=== PATIENT | male | born 1995 | race Two or more races ===

== ENCOUNTER 2024-05-01 21:14 | Emergency (ER) | payer OTHER ==
[~2024-05-01] VITALS: Ht 180.3 cm; Wt 69.9 kg
[2024-05-01] MEDS ORDERED: DOVATO 50-3001 EACH (21:24)
[2024-05-02 00:23] LABS: PH,URINE 6.5 (5.0-8.0); URINE APPEARANCE Cloudy; URINE BILIRRUBIN Negative (NEGATIVE); URINE BLOOD Large; URINE COLOR Yellow; URINE GLUCOSE Negative (NEGATIVE); URINE LEUKOCYTE Trace; URINE NITRATE Negative; URINE PROTEIN 30 (NEGATIVE); URINE UROBILINOGEN 0.2 E.U./dl
[2024-05-02 00:26] LABS: URINE BACTERIA 60.4 uL (0.0-1933); URINE EPITHELIAL CELLS 1.5 uL (0.0-38.8); URINE RBC 3988.3 uL (0.0-20.8); URINE WBC 29.8 uL (0.0-23.2)
[2024-05-02 00:35] LABS: HEMATOCRIT 44.7 % (39.0-48.0); HEMOGLOBIN 15.7 g/dL (13-16.00); MEAN CELL VOLUME 88.6 fL (80.0-100.00); PLATELET COUNT 146 K/uL (150-450); RED BLOOD COUNT 5.04 M/uL (4.00-6.00); RED CELL DISTRIBUTION WIDTH 13.8 % (11.5-14.5)
[2024-05-02 00:44] LABS: INR 1.11; PROTHROMBIN TIME 11.6 SECONDS (9.0-11.5)
[2024-05-02 00:50] LABS: ALBUMIN 3.9 gm/dL (3.4-5.0); BILIRUBIN TOTAL 1.94 mg/dL (0.3-1.2); CALCIUM 8.9 mg/dL (8.5-10.1); CREATININE SERUM 1.27 mg/dL (0.70-1.30); POTASSIUM 3.98 mEq/L (3.5-5.1); TOTAL PROTEIN 7.9 gm/dL (6.4-8.2)
[2024-05-02 00:51] LABS: GFR 67.53
[2024-05-02] MEDS ORDERED: CIPRO500 MG PO (01:34)
== END 2024-05-02 01:43 | disposition home or self-care (01) ==
LOC: ER 21:15
PROVIDERS: General Practice
DX: R31.9 Hematuria, unspecified (principal)

== ENCOUNTER 2024-07-21 11:38 | Emergency (ER) | payer OTHER ==
[~2024-07-21] VITALS: Ht 157.5 cm; Wt 70.3 kg
[~2024-07-21 11:38] MED LIST: CIPRO500 MG PO; DOVATO 50-3001 EACH
[2024-07-21 12:36] VITALS: BP 127/91; O2SAT 99
[2024-07-21] MEDS ORDERED: TRAMADOL HCL 50 MG TABLET PO STA (12:47)
== END 2024-07-21 16:19 | disposition home or self-care (01) ==
LOC: ER 11:40
DX: S52.121A Displaced fracture of head of right radius, initial encounter for closed fracture (principal); S60.212A Contusion of left wrist, initial encounter; S40.021A Contusion of right upper arm, initial encounter; V19.9XXA Pedal cyclist (driver) (passenger) injured in unspecified traffic accident, initial encounter; Y93.89 Activity, other specified; Y92.89 Other specified places as the place of occurrence of the external cause; Y99.9 Unspecified external cause status; R31.9 Hematuria, unspecified

== ENCOUNTER 2024-07-29 12:28 | Outpatient (CLI) | payer OTHER | END 2024-07-29 12:35 | disposition home or self-care (01) | LOC: RAD 12:28 | PROVIDERS: ATTEND Orthopaedic Surgery | DX: S40.011A Contusion of right shoulder, initial encounter (principal); S52.125A Nondisplaced fracture of head of left radius, initial encounter for closed fracture ==

== ENCOUNTER 2024-09-09 13:55 | Outpatient (CLI) | payer OTHER | END 2024-09-09 14:02 | disposition home or self-care (01) | LOC: RAD 13:55 | PROVIDERS: ATTEND Orthopaedic Surgery | DX: S52.124D Nondisplaced fracture of head of right radius, subsequent encounter for closed fracture with routine healing (principal) ==

== ENCOUNTER → 2025-10-21 | Emergency (ER) | payer OTHER ==
[~2025-10-21] VITALS: Ht 154.9 cm; Wt 70.3 kg
[~2025-10-21] MED LIST changes: +AZITHROMYCIN250 MG PO; +CEFTRIAXONE SODIUM 2,000 MG VIAL IV STA; +GUAIFENESIN 200 MG/10 ML BLIST.PACK PO STA; +METHYLPREDNISOLONE SOD SUCC 125 MG VIAL IV STA
[2025-10-22 01:09] LABS: COVID-19 AG NEGATIVE (NEGATIVE)
[2025-10-22 01:10] LABS: BASO % 0.3 % (0.1-1.2); EOS # 0.05 (0.04-0.54); EOS % 0.5 % (0.7-7.0); LYMPH # 2.36 (1.18-3.74); LYMPH % 24.6 % (19.3-53.1); MEAN PLATELET VOLUME 9.50 fl (9.4-12.4); MONO # 0.61 (0.24-0.82); MONO % 6.4 % (4.7-12.5); NEUT # 6.52 (1.56-6.13); NEUT % 67.9 % (34.0-71.1); RED CELL DISTRIBUTION WIDTH 12.8 % (11.6-14.4)
[2025-10-22 01:35] LABS: ALT/SGPT 29.0 U/L (12-78); AST/SGOT 19.0 U/L (15-37); BILIRUBIN TOTAL 1.09 mg/dL (0.3-1.2); BUN CREA RATIO 11.0 (7.0-25.0); CREATININE SERUM 0.99 mg/dL (0.70-1.30); GFR 89.37; GLOBULINA 4.2 G/DL (2.4-3.5); GLUCOSE FASTING 91.0 mg/dL (65-100); OSMOLALITY SERUM 277.0 MOSM/KG (275-295)
== END | disposition home or self-care (01) ==
LOC: ER 20:43
PROVIDERS: General Practice
DX: R05.8 Other specified cough (principal); Z20.822 Contact with and (suspected) exposure to COVID-19